=== PATIENT | male | born 1950 | race Caucasian/White ===

== ENCOUNTER 2021-11-29 09:49 | Outpatient (CLI) | payer MEDICARE, SELFPAY ==
[2021-11-29 11:20] LABS: Basophils Absolute Auto 0.1 K/mm3 (0.0-0.1); Basophils Percent Auto 0.8 % (0.2-1.2); Eosinophils Absolute Auto 0.4 K/mm3 (0-0.3); Eosinophils Percent Auto 5.7 % (0-4.4); Hematocrit 51.4 % (42.0-52.0); Hemoglobin 17.3 g/dL (14.0-18.0); Immature Granulocyte Absolute 0.04 K/mm3 (0.00-0.031); Immature Granulocyte Percent A 0.5 % (0-0.5); Lymphocytes Absolute Auto 2.88 K/mm3 (0.9-3.2); Lymphocytes Percent Auto 39.2 % (18.3-44.2); Mean Corpuscular HGB Conc 33.7 g/dl (32-36); Mean Corpuscular Hemoglobin 31.3 pg (26-34); Mean Corpuscular Volume 93.1 fl (80-100); Mean Platelet Volume 9.6 fl (7.4-10.4); Monocytes Absolute Auto 0.7 K/mm3 (0.1-0.6); Neutrophils Absolute Auto 3.3 K/mm3 (1.3-6.7); Neutrophils Percent Auto 44.8 % (45.5-73.1); Platelet Count Result 199 k/mm3 (150-375); Red Blood Count 5.52 M/mm3 (4.6-6.20); Red Cell Distribution Width 12.7 % (11.5-14.5); White Blood Count 7.3 K/mm3 (4.5-10.0)
[2021-11-29 11:31] LABS: Urine Cotinine NEGATIVE
[2021-11-29 11:32] LABS: Hemoglobin A1C 6.3 % (<5.7)
[2021-11-29 11:32] LABS: Prothrombin Time 12.7 Seconds (11.1-14.7)
[2021-11-29 11:33] LABS: Partial Thromboplastin Time 26.6 SECONDS (22.3-36.8)
[2021-11-29 11:34] LABS: Albumin Level 4.5 g/dL (3.5-5.1); Anion Gap 6 mmol/L (8-16); Blood Urea Nitrogen 16 mg/dL (9-20); Calcium 9.5 mg/dL (8.4-10.2); Carbon Dioxide 27 mmol/L (22-30); Chloride 104 mmol/L (98-107); Estimated Glomerular Filt Rate > 60; Glucose 107 mg/dL (65-110); Potassium 4.2 mmol/L (3.4-5.0); Sodium 137 mmol/L (137-145)
[2021-11-29 12:07] LABS: Appearance Urine Clear (Clear); Bilirubin Urine Negative (Negative); Blood Urine Negative (Negative); Color Urine Yellow (Yellow); Glucose Urine UA 1+ mg/dL (Negative); Ketones Urine Trace mg/dL (Negative); Leukocyte Esterase Ur Negative LEU/UL (Negative); Nitrate Urine Negative (Negative); Protein Urine 1+ mg/dL (Negative); Specific Grav Ur 1.025 (1.001-1.035); Urobilinogen Urine 0.2 mg/dL (<2.0); pH Urine 5.5 (5.0-9.0)
[2021-11-29 12:50] LABS: Add Urine Microscopic? YES
[2021-11-29 12:51] LABS: Mucus Urine Few /lpf; Squamous Epithelial Cell Urine Few /hpf (Few)
[2021-11-29 12:52] LABS: RBC Urine 0-2 /hpf (0-2)
[2021-11-29 12:53] LABS: Bacteria Urine Trace /hpf; WBC Urine 0-3 /hpf (0-3)
== END 2021-11-29 09:50 | disposition home or self-care (01) ==
LOC: ANHSURGERY 09:54
PROVIDERS: PCP Internal Medicine; Visit Provider Orthopaedic Surgery
DX: M17.11 Unilateral primary osteoarthritis, right knee (principal); Z01.818 Encounter for other preprocedural examination
CPT/HCPCS: 80048; 80307; 81001; 82040; 83036; 85025; 85610; 85730; 87081

== ENCOUNTER 2021-12-15 00:20 | Day surgery (SDC) | payer MEDICARE, SELFPAY ==
--- NOTE | 2021-11-29 09:42 | PC.NURSE ---
Report to the Outpatient Waiting Room, entrance under the green pavilion located off [facility], at time _0830_ on date _12/15/21_. OR Time: _1000_. - You and your visitor will be asked a series of questions to screen for COVID 19 for your protection. - A mask is required within the hospital. One visitor will be allowed to accompany the patient into the hospital. Patients visitor will be instructed to remain with patient at all times or leave the building. VISITING HOURS 10AM-7PM, USE MAIN ENTRANCE Preoperative COVID Testing Requirements: NONE Patients may have clear liquids (water, carbonated beverages, clear teas, apple juice) until 3 hours prior to surgery (0730 AM) with a maximum of 20 ounces. - No food from midnight until time of surgery Take the following medications with a SIP of water the morning of surgery: _NONE_ Medications to discontinue per KYLEIGH - _ASPIRIN, VOLTAREN OINTMENT - ASK REGARDING AT 12/03/21 APPT___ Medications to discontinue per ANESTHESIA - _MULTIVITAMINS/SUPPLEMENTS, 3 DAYS PRIOR TO SURGERY, Date to take last dose_12/11/21_ Please no deodorant, or body powder the day of surgery. No jewelry (including any body piercings) or valuables the day of surgery, leave them at home. Please take a shower or bath the night before, or the morning of, surgery with an antibacterial soap. Wear comfortable, loose fitting clothing. - Jewelry must be removed prior to entering the operating room. Rings and piercings that are not removed may be cut off. - The hospital will not accept responsibility for valuables. - Please leave all valuables, including medications, at home the day of surgery. If you are going home after surgery, a licensed route relief driver must drive you home. - NO public transportation without another adult. - We recommend that an adult stay with you for 24 hours following discharge. - We also recommend that you do not drive, make important decision, drink alcoholic beverages, or take any drugs that were not prescribed by your health care provider for at least 24 hours after your discharge time. Follow any additional instructions given to you from DR. ARIZMENDI Instructions given to ____PT and asked if any additional questions and then verbalized understanding. Patient advised to call surgeon office or pre surgery nurse liaisonMARTA [phone] if any additional questions.
[2021-11-29 10:22] VITALS: BP 150/70; PULSE 60; RESP 20; TEMP 36.4; O2SAT 94; BMI 29.1
[2021-12-15] VITALS (13 sets, daily range): BP systolic 115–167; BP diastolic 64–94; PULSE 59–97; RESP 12–20; TEMP 36.1–36.7; O2SAT 93–100
--- NOTE | ~2021-12-15 | XR_ITS ---
EXAMINATION: XR knee RT 2V DATE: 12/15/2021 14:06 INDICATION: Postoperative evaluation following right total knee arthroplasty. TECHNIQUE: Anteroposterior and lateral views of the right knee were obtained. COMPARISON: 08/30/2021 FINDINGS: Right total knee arthroplasty without patellar resurfacing appears well seated and in near anatomic a lignment. No fractures identified. Skin gerard and expected postoperative subcutaneous and intra-a rticular gas. Again seen is a large collection of corticated heterotopic ossification in the poplitea l fossa likely representing osteochondral bodies filling a ganglion cyst. Additional heterotopic ossi cyrus in the region of the popliteal recess potentially an additional osteochondral body. IMPRESSION: 1. Right total knee arthroplasty, negative for postoperative purposes. 2. 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 Reviewed, dictated and finalized at location A. IMPRESSION: 1. Right total knee arthroplasty, negative for postoperative purposes. 2. Chronic large collection of heterotopic ossification versus osteochondral luc dies at the popliteal fossa.
--- NOTE | 2021-12-15 07:22 | WPDHPUPDATE1 ---
History and Physical Update Update Date/Time: 12/15/21 07:22 History and Physical has been reviewed, including an updated exam of the patient. There are NO changes in the patient's condition. Risks, benefits, and alternatives have been discussed and questions answered. Patient agrees to proceed with procedure.
[2021-12-15] MEDS: LACTATED RINGERS 1,000 ML 30 ML IV CONT ×2 (09:10→13:50)
[2021-12-15] MEDS: ACETAMINOPHEN 500 MG TABLET 1000 MG PO (09:11)
--- NOTE | 2021-12-15 10:14 | P.PNAN_ITS ---
Anes - Initial Pre Proc Eval Procedure: Operation Date: 12/15/21 10:30 Proposed Procedures p Right Total Knee Arthroplasty - Sridhar Johnson MD Date/Time: 12/15/21 10:14 Surgeon: Sridhar Johnson MD Pre Op Diagnosis: right knee DJD Patient Data Age: 71 Gender: M Height: 1.91 m Weight: 104.1 kg Last Vital Signs Temp 36.2 C L 12/15/21 09:17 Pulse 59 L 12/15/21 09:17 Resp 16 12/15/21 09:17 BP 134/67 12/15/21 09:17 Pulse Ox 97 12/15/21 09:17 Allergies Allergy/AdvReac Type Severity Reaction Status Date / Time No Known Allergies Allergy Verified 12/15/21 08:36 Home Medications Medication Instructions Recorded Confirmed Type finasteride 5 mg tablet 5 mg PO 3XW 09/09/19 12/15/21 History fish, borage, flaxseed oils-omega 1 cap PO QAM 09/09/19 12/15/21 History 3,6,9 comb no.1 1,200 mg capsule psyllium husk 0.52 gram capsule 0.52 gm PO QAM 09/09/19 12/15/21 History rosuvastatin 10 mg tablet 10 mg PO HS 09/09/19 12/15/21 History aspirin 81 mg PO HS 11/29/21 12/15/21 History cholecalciferol (vitamin D3) 125 mcg PO QAM 11/29/21 12/15/21 History diclofenac sodium [Voltaren] 4 g TOPICAL QID 11/29/21 12/15/21 History hydrochlorothiazide 25 mg QAM 11/29/21 12/15/21 History melatonin 20 mg PO HS 11/29/21 12/15/21 History nbslbrfb-nuo-WI-lycopen-lutein 1 tablet PO QAM 11/29/21 12/15/21 History [[facility]] nitroglycerin 0.4 mg SUBLINGUAL Q1-3M 11/29/21 12/03/21 History tadalafil 20 mg PO DAILY PRN 11/29/21 12/03/21 History Patient hx anesthesia problems: none Family hx anesthesia problems: none Results Review: All pre-operative results and documents have been reviewed as part of the pre-operative evaluation. FORMERLY [facility], [facility] Past Medical History Medical History Anxiety CAD (coronary artery disease) Depressed High cholesterol Hypertension Vision loss Surgical History Surgical History H/O heart artery stent Social History Social History Second hand tobacco smoke exposure: No Additional smoking assessment comments: PT DENIES ALL FORMS OF TOBACCO USE Alcohol intake: current Drinks per week: 2 Substance use: never Substance use type: does not use Living arrangements: with family Spiritual care concerns: No Anes - Eval Final PreProcedure Day of Procedure 12/15/21 10:14 Patient weight: overweight Heart: regular rate and rhythm Lungs: clear to auscultation Airway: Mallampati scale class II Neurological: alert and oriented Last oral intake: >/= 8 hours ASA classification: III Emergent: no Anesthetic plan: proceed Anesthesia type and monitoring: general LMA and standard monitoring Results Review: All pre-operative results and documents have been reviewed as part of the pre-operative evaluation. Informed Consent: The patient's anesthetic plan and its attendant risks and benefits were discussed with the patient/family/POA. Questions were solicited and answers provided to the satisfaction of the patient/family/POA.
[2021-12-15] MEDS: TRANEXAMIC ACID 1,000MG/ISO100 1,000 MG/100 ML BAG 200 MG IVPB (10:20)
[2021-12-15] MEDS: ceFAZolin 2 GM/D5W 50 ML 2 GM/50 ML BAG IVPB ×2 (11:26→18:45)
[2021-12-15] MEDS: GENTAMICIN BONE CEMENT REFOBACIN 1 EACH TOPICAL (12:00)
[2021-12-15] MEDS: TRANEXAMIC ACID 1,000 MG/10 ML AMPUL 1000 MG IV PUSH (13:21)
[2021-12-15] MEDS: fentaNYL CITRATE INJ (*CRX) 100 MCG/2 ML VIAL 25 MCG IV PUSH ×6 (14:05→14:33)
--- NOTE | 2021-12-15 14:25 | SUR.PHASEI ---
Simple mask removed at 1422.
--- NOTE | 2021-12-15 14:32 | W.PM.PROC2 ---
Procedure Note - Detailed Date of Procedure 12/15/21 Pre-op Diagnosis right knee DJD Post-op Diagnosis Same Procedure Performed R TKA Surgeon Sridhar Johnson MD Anesthesia General Description of Procedure THE RIGHT KNEE WAS PREPPED AND DRAPED IN THE STERILE FASHION. THERE WAS A 10 DEGREE FLEXION CONTRACTURE. A MIDLINE SKIN INCISION WAS MADE. A MEDIAL PARAPATELLAR ARTHROTOMY WAS MADE. THE PATELLA WAS EVERTED. THERE WAS TRICOMPARTMENT DJD. THERE WAS MINIMAL PATELLA DJD. AN INTRAMEDULLARY SARITA WAS PLACED IN THE FEMUR. A DISTAL FEMORAL CUT WAS MADE IN 5 DEGREES OF VALGUS REMOVING APPROXIMATELY 9 MM OF BONE FROM THE DISTAL FEMUR. THE FEMUR WAS SIZED TO 70. A 70 FEMORAL CUTTING BLOCK WAS PLACED IN 3 DEGREES OF EXTERNAL ROTATION AND IN ALIGNMENT WITH GINA'S LINE AND THE TRANSEPICONDYLAR AXIS. ANTERIOR POSTERIOR AND CHAMFER CUTS WERE MADE. THE CUTS WERE EXCELLENT. NEXT AN INTRAMEDULLARY CUTTING GUIDE WAS PLACED IN THE TIBIA. A TRANS TIBIAL CUT WAS MADE ALONG THE LONG AXIS OF THE TIBIA. APPROXIMATELY 10 MM OF BONE WAS REMOVED FROM THE HIGH SIDE OF THE TIBIA. THE TIBIA WAS THEN PLANED TO A SMOOTH SURFACE. POSTERIOR FEMORAL OSTEOPHYTES WERE REMOVED FROM THE FEMORAL CONDYLES. A 83 TIBIAL TRIAL WAS PLACED IN ALIGNMENT WITH THE 1/3 MEDIAL ASPECT OF THE TIBIAL TUBERCLE. THEN A 70 FEMORAL TRIAL COMPONENT WAS PLACED. BOTH HAD EXCELLENT FITS. EVENTUALLY A 10 MM CR POLYETHYLENE TRIAL COMPONENT WAS PLACED. THE KNEE WAS TAKEN THROUGH A RANGE OF MOTION. THE KNEE CAME OUT TO FULL EXTENSION. THERE WAS NO ABNORMAL TILT TO THE PATELLA. THERE WAS GOOD A/P AND VARUS/VALGUS STABILITY. THERE WAS NO EXCESSIVE ROLL BACK WITH FLEXION. THE TRIAL COMPONENTS WERE REMOVED. THEN A 70 FEMORAL COMPONENT AND 83 TIBIAL COMPONENT WITH A 10 CR POLYETHYLENE COMPONENT WERE CEMENTED INTO PLACE. ONCE THE CEMENT WAS HARD THE KNEE WAS TAKEN THROUGH A ROM AGAIN AND FOUND TO BE STABLE WITH NO PATELLA TILT NO EXCESSIVE ROLL BACK WITH FLEXION AND GOOD STABILITY WITH COMPLETE AND FULL EXTENSION. THE KNEE WAS IRRIGATED WITH STERILE BETADINE AND WATER FOR ABOUT 3 MINUTES. THE BLEEDERS WERE CAUTERIZED. THE ARTHROTOMY WAS REPAIRED WITH NUMBER 1 VICRYL. THE SUB CUTANEOUS LAYER WITH 2-0 VICRYL AND THE SKIN WITH CHERRI. THE WOUND WAS WASHED AND A STERILE DRESSING WAS APPLIED. PATIENT WAS EXTUBATED. Estimated Blood Loss 100 Pathology None sent Complications No immediate complications Condition Stable Disposition PACU
[2021-12-15] MEDS: SODIUM CHLORIDE 0.9% IV 1,000 ML 125 ML IV CONT (16:32)
[2021-12-15] MEDS: FINASTERIDE 5 MG TABLET PO (16:40)
[2021-12-15] MEDS: SENNA/DOCUSATE SODIUM TABLET 2 TAB PO (16:40)
--- NOTE | 2021-12-15 19:52 | PC.NURSE ---
1900 ANCEF GIVEN PER BETY PEÑA ON DAY SHIFT
[2021-12-15] MEDS: ASPIRIN 325 MG ENTERIC TABLET PO (20:57)
[2021-12-15] MEDS: ROSUVASTATIN 10 MG TABLET PO (20:57)
[2021-12-16 00:59] VITALS: BP 140/71; PULSE 70; RESP 14; TEMP 36.6; O2SAT 95
[2021-12-16] MEDS: ceFAZolin 2 GM/D5W 50 ML 2 GM/50 ML BAG IVPB ×2 (03:12→10:37)
[2021-12-16 06:16] LABS: Basophils Percent Auto 0.2 % (0.2-1.2); Eosinophils Percent Auto 0.1 % (0-4.4); Hematocrit 45.4 % (42.0-52.0); Immature Granulocyte Absolute 0.06 K/mm3 (0.00-0.031); Immature Granulocyte Percent A 0.4 % (0-0.5); Lymphocytes Absolute Auto 2.37 K/mm3 (0.9-3.2); Lymphocytes Percent Auto 17.4 % (18.3-44.2); Mean Corpuscular Hemoglobin 31.7 pg (26-34); Mean Platelet Volume 10.2 fl (7.4-10.4); Monocytes Absolute Auto 1.2 K/mm3 (0.1-0.6); Monocytes Percent Auto 8.4 % (2.6-8.5); Neutrophils Percent Auto 73.5 % (45.5-73.1); Platelet Count Result 185 k/mm3 (150-375); Red Blood Count 4.73 M/mm3 (4.6-6.20); Red Cell Distribution Width 12.5 % (11.5-14.5); White Blood Count 13.6 K/mm3 (4.5-10.0)
[2021-12-16 06:24] LABS: Anion Gap 8 mmol/L (8-16); Blood Urea Nitrogen 15 mg/dL (9-20); Calcium 8.6 mg/dL (8.4-10.2); Carbon Dioxide 25 mmol/L (22-30); Chloride 105 mmol/L (98-107); Estimated CRCL calculation 69 ml/min; Estimated Glomerular Filt Rate > 60; Glucose 107 mg/dL (65-110); Sodium 138 mmol/L (137-145)
[2021-12-16 07:03] VITALS: BP 145/70; PULSE 71; RESP 16; TEMP 36.4; O2SAT 97
[2021-12-16] MEDS: polyethylene glycoL 3350 17 GM POWD.PACK PO (08:16)
[2021-12-16] MEDS: CHOLECALCIFEROL 1,000 UNITS TABLET 5000 UNITS PO (08:16)
[2021-12-16] MEDS: hydroCHLOROthiazide 25 MG TABLET BY MOUTH (08:16)
[2021-12-16] MEDS: ASPIRIN 325 MG ENTERIC TABLET PO (08:16)
[2021-12-16] MEDS: SENNA/DOCUSATE SODIUM TABLET 2 TAB PO ×2 (08:16→17:44)
[2021-12-16 10:00] VITALS: BP 141/69; PULSE 58; RESP 18; TEMP 36.9; O2SAT 99
--- NOTE | 2021-12-16 10:43 | P.PNAN_ITS ---
Anes - Prog Note Post-Op Date/Time: 12/16/21 10:43 Cardiovascular status: normal Respiratory status: normal Airway patency: baseline Mental status: baseline Post-Op hydration status: normal Vital Signs: Last Vital Signs Temp 98.4 F 12/16/21 10:00 Pulse 58 L 12/16/21 10:00 Resp 18 12/16/21 10:00 BP 141/69 H 12/16/21 10:00 Pulse Ox 99 12/16/21 10:00 Pain Score (VAS): 09/27 I/O: Intake & Output 12/15/21 12/16/21 12/16/21 23:59 07:59 15:59 Intake Total 510 1400 480 Output Total 500 Balance 510 900 480 Laboratory Tests 12/16/21 05:33 12/16/21 05:33 12/16/21 12/16/21 05:33 05:33 WBC 13.6 H RBC 4.73 Hgb 15.0 Hct 45.4 MCV 96.0 MCH 31.7 MCHC 33.0 RDW 12.5 Plt Count 185 MPV 10.2 Immature Gran % (Auto) 0.4 Neut % (Auto) 73.5 H Lymph % (Auto) 17.4 L [place] % (Auto) 8.4 Eos % (Auto) 0.1 Baso % (Auto) 0.2 Lymph # (Auto) 2.37 [place] # (Auto) 1.2 H Eos # (Auto) 0.0 Baso # (Auto) 0.0 Abs Immat Gran (auto) 0.06 H Absolute Neuts (auto) 10.0 H Absolute Nucleated RBC 0.0 Nucleated RBC % 0.0 Sodium 138 Potassium 4.0 Chloride 105 Carbon Dioxide 25 Anion Gap 8 BUN 15 Creatinine 1.00 Estim Creat Clear Calc 69 Estimated GFR > 60 Glucose 107 Calcium 8.6 Post-procedural complaints: none Patient Feedback: Patient satisfied with anesthetic care.
[2021-12-16 14:00] VITALS: BP 151/63; PULSE 61; RESP 16; TEMP 36.9; O2SAT 98
[2021-12-16] MEDS: oxyCODONE/ACETAMINOPHEN (*CRX) 5-325 MG TABLET 1 TABLET PO (17:44)
--- NOTE | 2021-12-16 18:09 | PM.PNORT ---
Progress Note: A&P Additional Plan POD 1 DOING WELL. OK TO DC HOME F/U IN 3 WEEKS Time Spent With Patient Time with patient: less than 15 minutes Subjective Subjective Date/Time Seen: OD 1 DOING WELL. GOOD PROGRESS WITH PT. NO CALF PAIN/ 18:09 Exam Extrem: Other: VSS AFEBRILE DRESSING DRY NV INTACT NEG HOMANS SIGN Objective Data Vital Signs Vital Signs: Vital Signs - 24 hr 12/15/21 18:51 12/15/21 19:56 12/15/21 20:07 Temperature 36.3 C L 36.7 C Pulse Rate 96 97 Respiratory Rate 18 16 Blood Pressure 138/64 144/83 H Pulse Oximetry 95 95 96 12/16/21 00:59 12/16/21 07:03 12/16/21 10:00 Temperature 36.6 C 36.4 C 36.9 C Pulse Rate 70 71 58 L Respiratory Rate 14 16 18 Blood Pressure 140/71 145/70 H 141/69 H Pulse Oximetry 95 97 99 12/16/21 14:00 Temperature 36.9 C Pulse Rate 61 Respiratory Rate 16 Blood Pressure 151/63 H Pulse Oximetry 98 Intake/Output Intake/Output: Intake & Output 12/13/21 12/14/21 12/15/21 12/16/21 23:59 23:59 23:59 23:59 Intake Total 1160 3350 Output Total 500 Balance 1160 2850 Meds/Results Medications: Active Medications Generic Name Dose Route Start Last Admin Trade Name Freq PRN Reason Stop Dose Admin Acetaminophen 1,000 mg 12/15/21 15:14 Acetaminophen 500 Mg Tablet PO Q6H PRN Pain Rated 1-3 Aspirin 325 mg 12/15/21 21:00 12/16/21 08:16 Aspirin 325 Mg Enteric Tablet PO 325 mg Q12HR MIMA Administration Diazepam 5 mg 12/15/21 15:14 Diazepam (*Crx) 5 Mg Tablet PO Q8H PRN Spasms Diphenhydramine HCl 25 mg 12/15/21 15:14 Diphenhydramine Hcl Inj 50 Mg/Ml Vial IV PUSH Q6H PRN Itching Finasteride 5 mg 12/15/21 15:14 12/15/21 16:40 Finasteride 5 Mg Tablet PO 5 mg [id number] MIMA Administration Hydrochlorothiazide 25 mg 12/16/21 09:00 12/16/21 08:16 Hydrochlorothiazide 25 Mg Tablet BY MOUTH 25 mg QAM MIMA Administration Naloxone HCl 0.1 mg 12/15/21 15:14 Naloxone Hcl 0.4 Mg/Ml Vial IV PUSH Q2M PRN Opiate Reversal Nitroglycerin 0.4 mg 12/15/21 16:40 Nitroglycerin Sl 0.4 Mg Tablet SUBLINGUAL Q5M PRN Chest Pain Ondansetron HCl 4 mg 12/15/21 15:14 Ondansetron Inj 4 Mg/2 Ml Vial IV PUSH Q4H PRN Nausea And Vomiting Oxycodone/Acetaminophen 1 tablet 12/15/21 15:14 12/16/21 17:44 Oxycodone/Acetaminophen (*Crx) 5-325 Mg Tablet PO 1 tablet Q4H PRN Administration Pain Rated 4-6 Oxycodone/Acetaminophen 2 tablet 12/15/21 15:14 Oxycodone/Acetaminophen (*Crx) 5-325 Mg Tablet PO Q6H PRN Pain Rated 7-10 Polyethylene Glycol 17 gm 12/16/21 09:00 12/16/21 08:16 Polyethylene Glycol 3350 17 Gm Powd.Pack PO 17 gm QAM MIMA Administration Rosuvastatin Calcium 10 mg 12/15/21 21:00 12/15/21 20:57 Rosuvastatin 10 Mg Tablet PO 10 mg HS MIMA Administration Senna/Docusate Sodium 2 tab 12/15/21 17:00 12/16/21 17:44 Senna/Docusate Sodium Tablet PO 2 tab BID MIMA Administration Vitamin D 5,000 units 12/16/21 09:00 12/16/21 08:16 Cholecalciferol 1,000 Units Tablet PO 5,000 units QAM IMMA Administration Radiology Results: ITS Impressions Knee X-Ray 12/15/21 14:10 IMPRESSION: 1. Right total knee arthroplasty, negative for postoperative purposes. 2. 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 Labs Labs: Laboratory Results - last 24 hr 12/16/21 12/16/21 05:33 05:33 WBC 13.6 H RBC 4.73 Hgb 15.0 Hct 45.4 MCV 96.0 MCH 31.7 MCHC 33.0 RDW 12.5 Plt Count 185 MPV 10.2 Immature Gran % (Auto) 0.4 Neut % (Auto) 73.5 H Lymph % (Auto) 17.4 L [place] % (Auto) 8.4 Eos % (Auto) 0.1 Baso % (Auto) 0.2 Lymph # (Auto) 2.37 [place] # (Auto) 1.2 H Eos # (Auto) 0.0 Baso # (Auto) 0.0 Abs Immat Gran (auto) 0.06 H Absolute Neuts (auto) 10.0 H Absolute Nucleated RBC 0.0
--- NOTE | 2021-12-16 18:10 | PM.DS ---
DS: Admitting Diagnosis Discharge Date 12/16/21 Admitting Diagnosis R KNEE DJD DS: Discharge Diagnosis Discharge Diagnosis (1) Left knee DJD: Qualifiers: Osteoarthritis type: primary Qualified Code(s): M17.12 - Unilateral primary osteoarthritis, left knee Code(s): M17.12 - Unilateral primary osteoarthritis, left knee Status: Acute DS: Summary Hospital Course Reason for hospitalization: R TKA Hospital Course: PATIENT WAS ADMITTED S/P R TOTAL KNEE ARTHROPLASTY FOR POSTOPERATIVE MEDICAL MANAGEMENT, PAIN CONTROL AND MOBILIZATION WITH PHYSICAL AND OCCUPATIONAL THERAPY. THE PATIENT PROGRESSED WELL WITH PT/OT. LABS AND VITALS REMAINED STABLE AND PAIN WELL CONTROLLED. THE PATIENT HAS BEEN CLEARED TO BE DISCHARGED HOME. FOLLOW UP APPOINTMENT SCHEDULED. DISCHARGE INSTRUCTIONS DISCUSSED AT LENGTH WITH THE PATIENT. MEDICATIONS REVIEWED. Time spent discussing smoking cessation with patient: 3 to 10 minutes Status at Discharge Functional status at discharge: uses cane/walker Overall status at discharge: patient is not back to baseline Time Spent with Patient Time attestation: Total time spent providing and/or coordinating discharge services: Time spent: Less than 30 minutes DS: Data Data Completed and Pending Labs on day of discharge: Labs from last 24 hours 12/16/21 12/16/21 05:33 05:33 WBC 13.6 H RBC 4.73 Hgb 15.0 Hct 45.4 MCV 96.0 MCH 31.7 MCHC 33.0 RDW 12.5 Plt Count 185 MPV 10.2 Immature Gran % (Auto) 0.4 Neut % (Auto) 73.5 H Lymph % (Auto) 17.4 L [place] % (Auto) 8.4 Eos % (Auto) 0.1 Baso % (Auto) 0.2 Lymph # (Auto) 2.37 [place] # (Auto) 1.2 H Eos # (Auto) 0.0 Baso # (Auto) 0.0 Abs Immat Gran (auto) 0.06 H Absolute Neuts (auto) 10.0 H Absolute Nucleated RBC 0.0 Nucleated RBC % 0.0 Sodium 138 Potassium 4.0 Chloride 105 Carbon Dioxide 25 Anion Gap 8 BUN 15 Creatinine 1.00 Estim Creat Clear Calc 69 Estimated GFR > 60 Glucose 107 Calcium 8.6 Discharge Plan Discharge Patient Disposition: Home, Self-Care Discharge Instructions: SUSI JOHNSON M.D. [facility] [address] [place] [address] POST OPERATIVE DISCHARGE INSTRUCTIONS FOLLOWING TOTAL KNEE REPLACEMENT SURGERY ? Your dressing will be changed prior to your discharge. You will be sent home with one additional dressing to be changed on post op day 7 by the home health RN. Your gerard will be removed on the 14th day after surgery and steri-strips will be placed. Please practice good hand hygiene and do not touch your incision in order to prevent infection. ? You may shower with your dressing but do not submerge in a bath tub. ? Do not drive or operate machinery until you are released by Dr. Johnson. ? Do not walk without a walker for any reason until you are released by Dr. Johnson. ? Continue to use your ice machine. Please use a towel or pillow case to protect your skin before applying your ice machine. ? Do NOT place a pillow under your knee. You may use a pillow from the calf down if needed. This will prevent a flexion contracture postoperatively. ? You may begin use of your CPM machine at home if you have been given one pre-operatively. DO NOT USE WHILE YOU ARE SLEEPING. ? Your first post op appointment was sent to you via mail preoperatively. If you have any questions or are unable to make your appointment, please contact our office for scheduling questions. ? Your medications have been sent to your pharmacy. You have been sent home with pain medication. We have also sent you with a stool softener as narcotics can cause constipation. Please keep this in mind during your postoperative recovery. If you are not experiencing regular bowel movements, please contact our office for further instruction. ? Please contact our office with any questions/concerns regarding your knee at
== END 2021-12-16 18:40 | disposition home or self-care (01) ==
LOC: ANHSURGERY 08:30 → ANH2MED 15:22
PROVIDERS: PCP Internal Medicine; Visit Provider Orthopaedic Surgery
PROC: (CPT 27447; principal; 2021-12-15 10:30)
DX: M17.11 Unilateral primary osteoarthritis, right knee (principal); I10 Essential (primary) hypertension; I25.10 Atherosclerotic heart disease of native coronary artery without angina pectoris; E78.00 Pure hypercholesterolemia, unspecified; F41.8 Other specified anxiety disorders; Z95.5 Presence of coronary angioplasty implant and graft; Z79.82 Long term (current) use of aspirin
CPT/HCPCS: 27447; 36415; 73560; 80048; 80307; 81001; 82040; 83036; 85025; 85610; 85730; 86850; 86900; 86901; 87081; 97110; 97116; 97161; 97165; A9270; C1713; C1776; J0171; J0690; J1100; J1170; J1885; J2250; J2270; J2405; J2704; J2795; J3010; J7030; J7120

== ENCOUNTER 2022-07-01 09:58 | Outpatient (CLI) | payer MEDICARE, SELFPAY ==
--- NOTE | 2022-07-01 10:45 | ECG_ITS ---
Measurements Intervals [place] Rate: 54 P: 50 DE: 187 QRS: 40 QRSD: 153 T: 10 QT: 445 QTc: 422 Interpretive Statements SINUS BRADYCARDIA RIGHT BUNDLE BRANCH BLOCK [120+ ms QRS DURATION, UPRIGHT V1, 40+ ms S IN I/aVL/V4/V5/V6] ABNORMAL ECG NO PREVIOUS ECG AVAILABLE FOR COMPARISON Electronically Signed On 07-01-2022 15:40:43 CDT by Richard Azar M.D.
[2022-07-01 11:09] LABS: Basophils Absolute Auto 0.1 K/mm3 (0.0-0.1); Basophils Percent Auto 0.9 % (0.2-1.2); Eosinophils Absolute Auto 0.4 K/mm3 (0-0.3); Eosinophils Percent Auto 6.2 % (0-4.4); Hematocrit 48.4 % (42.0-52.0); Hemoglobin 16.4 g/dL (14.0-18.0); Immature Granulocyte Absolute 0.03 K/mm3 (0.00-0.031); Immature Granulocyte Percent A 0.4 % (0-0.5); Lymphocytes Absolute Auto 2.68 K/mm3 (0.9-3.2); Lymphocytes Percent Auto 39.7 % (18.3-44.2); Mean Corpuscular HGB Conc 33.9 g/dl (32-36); Mean Corpuscular Hemoglobin 30.9 pg (26-34); Mean Corpuscular Volume 91.3 fl (80-100); Mean Platelet Volume 9.2 fl (7.4-10.4); Monocytes Absolute Auto 0.6 K/mm3 (0.1-0.6); Monocytes Percent Auto 9.5 % (2.6-8.5); Neutrophils Absolute Auto 2.9 K/mm3 (1.3-6.7); Neutrophils Percent Auto 43.3 % (45.5-73.1); Platelet Count Result 216 k/mm3 (150-375); Red Cell Distribution Width 12.8 % (11.5-14.5); White Blood Count 6.8 K/mm3 (4.5-10.0)
[2022-07-01 11:18] LABS: Urine Cotinine NEGATIVE
[2022-07-01 11:20] LABS: Add Urine Microscopic? YES; Appearance Urine Clear (Clear); Bilirubin Urine Negative (Negative); Blood Urine Negative (Negative); Color Urine Yellow (Yellow); Glucose Urine UA Negative (Negative); Ketones Urine Negative (Negative); Leukocyte Esterase Ur Negative LEU/UL (Negative); Mucus Urine Rare /lpf; Nitrate Urine Negative (Negative); Protein Urine 1+ mg/dL (Negative); RBC Urine 0-2 /hpf (0-2); Specific Grav Ur 1.023 (1.001-1.035); Squamous Epithelial Cell Urine Rare /hpf (Few); Urobilinogen Urine Negative mg/dL (<2.0); WBC Urine 0-3 /hpf
[2022-07-01 11:22] LABS: Prothrombin Time 12.7 Seconds (11.1-14.7)
[2022-07-01 11:23] LABS: Albumin Level 4.4 g/dL (3.5-5.1); Anion Gap 11 mmol/L (8-16); Blood Urea Nitrogen 15 mg/dL (9-20); Calcium 9.5 mg/dL (8.4-10.2); Carbon Dioxide 29 mmol/L (22-30); Chloride 100 mmol/L (98-107); Estimated Glomerular Filt Rate > 60; Glucose 104 mg/dL (65-110); Partial Thromboplastin Time 27.1 SECONDS (22.3-36.8); Potassium 4.4 mmol/L (3.4-5.0); Sodium 140 mmol/L (137-145)
[2022-07-01 11:38] LABS: Hemoglobin A1C 6.6 % (<5.7)
== END 2022-07-01 09:59 | disposition home or self-care (01) ==
LOC: ANHSURGERY 10:03
PROVIDERS: PCP Family Medicine; Visit Provider Orthopaedic Surgery
DX: M17.12 Unilateral primary osteoarthritis, left knee (principal); Z01.818 Encounter for other preprocedural examination; I45.10 Unspecified right bundle-branch block
CPT/HCPCS: 80048; 80307; 81001; 82040; 83036; 85025; 85610; 85730; 87081; 93005

== ENCOUNTER 2022-07-27 01:38 | Day surgery (SDC) | payer MEDICARE, SELFPAY ==
[2022-07-01 10:17] VITALS: BP 151/73; PULSE 62; RESP 16; TEMP 36.1; O2SAT 97; BMI 27.9
--- NOTE | 2022-07-01 10:29 | PC.NURSE ---
Report to the Outpatient Waiting Room, entrance under the green pavilion located off [facility], at time __9:00AM on date ___07/27/22____. OR Time: __11:00AM . Time changes happen often and if your time is changed the preop area will call you the afternoon before. - You and your visitor will be asked to self-screen and do not enter if you have any COVID symptoms. - We encourage only one visitor and NO visitors under age 16 are allowed at this time. Your visitor will receive communication by the phone number that is given day of service. - The patient visitor is requested to social distance or may leave the building when not with patient due to restrictions. - A mask is required within the hospital. Patients may have clear liquids (water, carbonated beverages, clear teas, apple juice) until 3 hours prior to surgery with a maximum of 20 ounces. - No food from midnight until time of surgery Take the following medications with a SIP of water the morning of surgery: NONE Medications to discontinue per physician __HOLD ASPIRIN 7 DAYS PRE-OP PER DR ARIZMENDI- LAST DOSE 07/20/22. HOLD ALL VITAMINS/SUPPLEMENTS 3 DAYS PRE-OP, LAST DOSE 07/23/22 Please no make-up, nail south korean, hairspray, perfume, deodorant, or body powder the day of surgery. No jewelry (including any body piercings) or valuables the day of surgery, leave them at home. Please take a shower or bath the night before, or the morning of, surgery with an antibacterial soap. Wear comfortable, loose fitting clothing. Children are encouraged to wear pajamas. - Jewelry must be removed prior to entering the operating room. Rings and piercings that are not removed may be cut off. - The hospital will not accept responsibility for valuables. - Please leave all valuables, including medications, at home the day of surgery. If you are going home after surgery, a licensed tanker driver must drive you home. - NO public transportation without another adult. - We recommend that an adult stay with you for 24 hours following discharge. - We also recommend that you do not drive, make important decision, drink alcoholic beverages, or take any drugs that were not prescribed by your health care provider for at least 24 hours after your discharge time. Follow any additional instructions given to you from your surgeon. If you or anyone in your household have experienced Covid symptoms in the past week, please notify your surgeon or the nurse liaison at the phone number below for possible testing. Telephone instructions given to ____PATIENT and asked if any additional questions and then verbalized understanding. Patient advised to call surgeon office or pre surgery nurse liaison [phone] if any additional questions.
[2022-07-27] VITALS (15 sets, daily range): BP systolic 91–155; BP diastolic 58–103; PULSE 65–110; RESP 12–16; TEMP 36–36.9; O2SAT 93–99
--- NOTE | ~2022-07-27 | XR_ITS ---
EXAM: XR knee LT 2V DATE: 07/27/2022 15:11 HISTORY: LT TOTAL KNEE . COMPARISON: 06/27/2022. FINDINGS: Interval right knee total arthroplasty, in good position. Midline skin gerard. Expected s oft tissue and joint space gas/fluid. No unexpected radiopaque foreign body. IMPRESSION: Expected postsurgical changes, with no radiographic evidence of procedure or hardware rel ated complication. Reviewed, dictated and finalized at location [facility] [employer] IMPRESSION: Expected postsurgical changes, with no radiographic evidence of pro cedure or hardware related complication.
--- NOTE | 2022-07-27 07:14 | WPDHPUPDATE1 ---
History and Physical Update Update Date/Time: 07/27/22 07:14 History and Physical has been reviewed, including an updated exam of the patient. There are NO changes in the patient's condition. Risks, benefits, and alternatives have been discussed and questions answered. Patient agrees to proceed with procedure.
[2022-07-27] MEDS: ACETAMINOPHEN 500 MG TABLET 1000 MG PO (09:18)
[2022-07-27] MEDS: LACTATED RINGERS 1,000 ML 30 ML IV CONT ×2 (09:35→14:35)
--- NOTE | 2022-07-27 10:50 | WPDANESEPPF ---
Anes - Initial Pre Proc Eval Procedure: Operation Date: 07/27/22 11:00 Proposed Procedures p Left Total Knee Arthroplasty - Sridhar Johnson MD Date/Time: 07/27/22 10:50 Surgeon: Sridhar Johnson MD Pre Op Diagnosis: left knee DJD Patient Data Age: 72 Gender: M Height: 1.91 m Weight: 101.8 kg Last Vital Signs Temp 36.0 C L 07/27/22 09:38 Pulse 65 07/27/22 09:38 Resp 16 07/27/22 09:38 BP 154/67 H 07/27/22 09:38 Pulse Ox 99 07/27/22 09:38 O2 Del Method Room Air 07/27/22 09:38 Allergies Allergy/AdvReac Type Severity Reaction Status Date / Time No Known Allergies Allergy Verified 07/27/22 09:16 Home Medications Medication Instructions Recorded Confirmed Type finasteride 5 mg tablet 5 mg PO 3XW 09/09/19 07/27/22 History fish, borage, flaxseed oils-omega 1 cap PO QAM 09/09/19 07/27/22 History 3,6,9 comb no.1 1,200 mg capsule ([place] 3-6-9) psyllium husk 0.52 gram capsule 0.52 gm PO QAM 09/09/19 07/27/22 History (Fiber (psyllium husk)) aspirin 81 mg capsule 81 mg PO HS 11/29/21 07/27/22 History cholecalciferol (vitamin D3) 125 125 mcg PO QAM 11/29/21 07/27/22 History mcg (5,000 unit) capsule hydrochlorothiazide 25 mg tablet 25 mg PO DAILY 11/29/21 07/27/22 History melatonin 10 mg tablet 20 mg PO HS 11/29/21 07/27/22 History nitroglycerin 0.4 mg sublingual 0.4 mg sublingual Q1-3M CHEST PAIN 11/29/21 07/01/22 History tablet tadalafil 20 mg tablet 20 mg PO DAILY PRN Erectile 11/29/21 07/01/22 History Dysfunction cyanocobalamin (vitamin B-12) 5,000 mcg PO DAILY 07/01/22 07/27/22 History 5,000 mcg capsule rosuvastatin 40 mg tablet 40 mg PO HS 07/01/22 07/27/22 History Patient hx anesthesia problems: none Family hx anesthesia problems: none Results Review: All pre-operative results and documents have been reviewed as part of the pre-operative evaluation. [facility] Past Medical History Medical History Anxiety CAD (coronary artery disease) Depressed High cholesterol Hypertension Preoperative clearance Vision loss Surgical History Surgical History H/O heart artery stent Social History Social History Smoking status: Never smoker Second hand tobacco smoke exposure: No Additional smoking assessment comments: PT DENIES ALL FORMS OF TOBACCO USE Alcohol intake: current Drinks per week: 1 Substance use: never Substance use type: does not use Living arrangements: with family Additional living arrangements comments: Gender identity (if verbalized by the patient): Male Spiritual care concerns: No Agree to blood products: Yes Anes - Eval Final PreProcedure Day of Procedure 07/27/22 10:50 Patient weight: overweight Heart: regular rate and rhythm Lungs: clear to auscultation Airway: Mallampati scale class II Neurological: alert and oriented Last oral intake: >/= 8 hours ASA classification: III Emergent: no Anesthetic plan: proceed Anesthesia type and monitoring: general LMA and standard monitoring Results Review: All pre-operative results and documents have been reviewed as part of the pre-operative evaluation. Informed Consent: The patient's anesthetic plan and its attendant risks and benefits were discussed with the patient/family/POA. Questions were solicited and answers provided to the satisfaction of the patient/family/POA.
[2022-07-27] MEDS: TRANEXAMIC ACID 1,000MG/ISO100 1,000 MG/100 ML BAG 200 MG IVPB (11:00)
--- NOTE | 2022-07-27 11:41 | WPDANESPNB ---
Anes - Peripheral Nerve Block Date/Time: 07/27/22 11:41 I have discussed with the patient/family/POA the placement of a peripheral nerve block for post-operative pain management, including associated risks, benefits, complications, and side effects. Alternative methods of post-operative analgesia were detailed. Questions were solicited and answers provided to the satisfaction of the patient/family/POA. Time-Out: A pre-procedural Time-Out was completed immediately before starting the procedure and confirmed: Patient Identification, Site, Procedure, Patient Position and the Availability of Requisite Equipment. Clinical Indications: Acute post-operative pain management requested by the operative surgeon. Nerve Block Insertion Note Anes-nerve block: adductor canal left Patient position: supine Skin prep: chlorhexidine Needle: 22 gauge, stimulating, insulated echogenic needle. Needle length: 80 mm Technique: ultrasound Technique comment: mid2mg [id number] Injectate: bupivacaine 0.5% with epi 5 mcg/ml (30ml no epi) and dexamethasone (mg) (4) Observations: tolerated well Complications: none Procedure start time:: 1130 Procedure end time:: 1137
[2022-07-27] MEDS: ceFAZolin 2 GM/D5W 50 ML 2 GM/50 ML BAG IVPB ×2 (11:51→18:41)
[2022-07-27] MEDS: GENTAMICIN BONE CEMENT REFOBACIN 1 EACH TOPICAL (13:16)
[2022-07-27] MEDS: TRANEXAMIC ACID 1,000 MG/10 ML AMPUL 1000 MG IV PUSH (13:49)
[2022-07-27] MEDS: fentaNYL CITRATE INJ (*CRX) 100 MCG/2 ML VIAL 25 MCG IV PUSH ×5 (14:50→15:33)
--- NOTE | 2022-07-27 14:56 | W.PM.PROC2 ---
Procedure Note - Detailed Date of Procedure 07/27/22 Pre-op Diagnosis left knee DJD Post-op Diagnosis Same Procedure Performed L TKA Surgeon Sridhar Johnson MD Anesthesia General Description of Procedure THE LEFT KNEE WAS PREPPED AND DRAPED IN THE STERILE FASHION. THERE WAS A 20 DEGREE FLEXION CONTRACTURE. A MIDLINE SKIN INCISION WAS MADE. A MEDIAL PARAPATELLAR ARTHROTOMY WAS MADE. THE PATELLA WAS EVERTED. THERE WAS TRICOMPARTMENT DJD. THERE WAS MINIMAL PATELLA DJD. AN INTRAMEDULLARY SARTIA WAS PLACED IN THE FEMUR. A DISTAL FEMORAL CUT WAS MADE IN 5 DEGREES OF VALGUS REMOVING APPROXIMATELY 9 MM OF BONE FROM THE DISTAL FEMUR. THE FEMUR WAS SIZED TO 70. A 70 FEMORAL CUTTING BLOCK WAS PLACED IN 3 DEGREES OF EXTERNAL ROTATION AND IN ALIGNMENT WITH GINA'S LINE AND THE TRANSEPICONDYLAR AXIS. ANTERIOR POSTERIOR AND CHAMFER CUTS WERE MADE. THE CUTS WERE EXCELLENT. NEXT AN INTRAMEDULLARY CUTTING GUIDE WAS PLACED IN THE TIBIA. A TRANS TIBIAL CUT WAS MADE ALONG THE LONG AXIS OF THE TIBIA. APPROXIMATELY 10 MM OF BONE WAS REMOVED FROM THE HIGH SIDE OF THE TIBIA. THE TIBIA WAS THEN PLANED TO A SMOOTH SURFACE. POSTERIOR FEMORAL OSTEOPHYTES WERE REMOVED FROM THE FEMORAL CONDYLES. A 83 TIBIAL TRIAL WAS PLACED IN ALIGNMENT WITH THE 1/3 MEDIAL ASPECT OF THE TIBIAL TUBERCLE. THEN A 70 FEMORAL TRIAL COMPONENT WAS PLACED. BOTH HAD EXCELLENT FITS. EVENTUALLY A 10 MM CR POLYETHYLENE TRIAL COMPONENT WAS PLACED. THE KNEE WAS TAKEN THROUGH A RANGE OF MOTION. THE KNEE CAME OUT TO FULL EXTENSION. THERE WAS NO ABNORMAL TILT TO THE PATELLA. THERE WAS GOOD A/P AND VARUS/VALGUS STABILITY. THERE WAS NO EXCESSIVE ROLL BACK WITH FLEXION. THE TRIAL COMPONENTS WERE REMOVED. THEN A 70 FEMORAL COMPONENT AND 83 TIBIAL COMPONENT WITH A 10 CR POLYETHYLENE COMPONENT WERE CEMENTED INTO PLACE. ONCE THE CEMENT WAS HARD THE KNEE WAS TAKEN THROUGH A ROM AGAIN AND FOUND TO BE STABLE WITH NO PATELLA TILT NO EXCESSIVE ROLL BACK WITH FLEXION AND GOOD STABILITY WITH COMPLETE AND FULL EXTENSION. THE KNEE WAS IRRIGATED WITH STERILE BETADINE AND WATER FOR ABOUT 3 MINUTES. THE BLEEDERS WERE CAUTERIZED. THE ARTHROTOMY WAS REPAIRED WITH NUMBER 1 VICRYL. THE SUB CUTANEOUS LAYER WITH 2-0 VICRYL AND THE SKIN WITH CHERRI. THE WOUND WAS WASHED AND A STERILE DRESSING WAS APPLIED. PATIENT WAS EXTUBATED. Estimated Blood Loss -100.0 Pathology None sent Complications No immediate complications Condition Stable Disposition PACU
--- NOTE | 2022-07-27 16:39 | SUR.PHASEI ---
1600 pt is waiting for bed on floor, pt is ready to transfer to floor, stable at this time. meets pacu requirements for transferring to floor
--- NOTE | 2022-07-27 17:01 | ADMGEN ---
This patient, Pablito Orr, was admitted to Medical Room 252-01. Patient/family oriented to hospital policies and general routines including ID bracelet, bed and alarms, visiting hours, pain management, procedures, bathroom and other care routines, personal items, smoking policy, room service/diet, and visiting hours. Information on how to activate the Rapid Response Team has been discussed. Patient/Family are encouraged to report perceived risks to care and to ask questions if they do not understand what they are told or what they should do.
[2022-07-27] MEDS: CELECOXIB 200 MG CAPSULE PO (17:19)
[2022-07-27] MEDS: SENNA/DOCUSATE SODIUM TABLET 2 TAB PO (17:19)
[2022-07-27] MEDS: MELATONIN 5 MG TABLET 20 MG PO (21:20)
[2022-07-27] MEDS: ASPIRIN 81 MG CHEWABLE TABLET PO (21:20)
[2022-07-27] MEDS: ASPIRIN 325 MG ENTERIC TABLET PO (21:20)
[2022-07-27] MEDS: ROSUVASTATIN 10 MG TABLET 40 MG PO (21:20)
[2022-07-28 00:04] VITALS: BP 119/53; PULSE 100; RESP 16; TEMP 37.2; O2SAT 94
[2022-07-28] MEDS: ceFAZolin 2 GM/D5W 50 ML 2 GM/50 ML BAG IVPB ×2 (02:53→11:40)
[2022-07-28 04:14] VITALS: BP 137/72; PULSE 88; RESP 16; TEMP 36.9; O2SAT 94
[2022-07-28 06:50] LABS: Anion Gap 12 mmol/L (8-16); Blood Urea Nitrogen 21 mg/dL (9-20); Calcium 8.6 mg/dL (8.4-10.2); Carbon Dioxide 23 mmol/L (22-30); Chloride 101 mmol/L (98-107); Estimated CRCL calculation 58 ml/min; Estimated Glomerular Filt Rate 59; Glucose 135 mg/dL (65-110); Potassium 4.1 mmol/L (3.4-5.0); Sodium 136 mmol/L (137-145)
[2022-07-28 07:16] LABS: Basophils Percent Auto 0.2 % (0.2-1.2); Hematocrit 45.4 % (42.0-52.0); Immature Granulocyte Absolute 0.11 K/mm3 (0.00-0.031); Immature Granulocyte Percent A 0.6 % (0-0.5); Lymphocytes Percent Auto 10.8 % (18.3-44.2); Mean Corpuscular Hemoglobin 30.9 pg (26-34); Mean Corpuscular Volume 93.6 fl (80-100); Mean Platelet Volume 10.4 fl (7.4-10.4); Monocytes Absolute Auto 1.1 K/mm3 (0.1-0.6); Monocytes Percent Auto 5.4 % (2.6-8.5); Neutrophils Absolute Auto 16.1 K/mm3 (1.3-6.7); Platelet Count Result 223 k/mm3 (150-375); Red Blood Count 4.85 M/mm3 (4.6-6.20); Red Cell Distribution Width 12.4 % (11.5-14.5); White Blood Count 19.4 K/mm3 (4.5-10.0)
--- NOTE | 2022-07-28 07:59 | WPDANESPN ---
Anes - Prog Note Post-Op Date/Time: 07/28/22 07:59 Cardiovascular status: normal Respiratory status: normal Airway patency: baseline Mental status: baseline Post-Op hydration status: normal Vital Signs: Last Vital Signs Temp 36.9 C 07/28/22 04:14 Pulse 88 07/28/22 04:14 Resp 16 07/28/22 04:14 BP 137/72 07/28/22 04:14 Pulse Ox 94 07/28/22 04:14 O2 Del Method Room Air 07/27/22 23:26 O2 Flow Rate 2 07/27/22 16:10 Pain Score (VAS): 11/25 I/O: Intake & Output 07/27/22 07/27/22 07/28/22 15:59 23:59 07:59 Intake Total 1150 1130 100 Balance 1150 1130 100 Laboratory Tests 07/28/22 05:28 07/28/22 05:28 07/27/22 07/28/22 07/28/22 09:30 05:28 05:28 WBC 19.4 H RBC 4.85 Hgb 15.0 Hct 45.4 MCV 93.6 MCH 30.9 MCHC 33.0 RDW 12.4 Plt Count 223 MPV 10.4 Immature Gran % (Auto) 0.6 H Neut % (Auto) 83.0 H Lymph % (Auto) 10.8 L [place] % (Auto) 5.4 Eos % (Auto) 0.0 Baso % (Auto) 0.2 Lymph # (Auto) 2.10 [place] # (Auto) 1.1 H Eos # (Auto) 0.0 Baso # (Auto) 0.0 Abs Immat Gran (auto) 0.11 H Absolute Neuts (auto) 16.1 H Absolute Nucleated RBC 0.0 Nucleated RBC % 0.0 Sodium 136 L Potassium 4.1 Chloride 101 Carbon Dioxide 23 Anion Gap 12 BUN 21 H Creatinine 1.20 Estim Creat Clear Calc 58 Estimated GFR 59 Glucose 135 H Calcium 8.6 Blood Type O Positive Antibody Screen Negative Post-procedural complaints: none Patient Feedback: Patient satisfied with anesthetic care.
[2022-07-28] MEDS: CELECOXIB 200 MG CAPSULE PO (08:33)
[2022-07-28] MEDS: ASPIRIN 325 MG ENTERIC TABLET PO (08:34)
[2022-07-28] MEDS: CHOLECALCIFEROL 1,000 UNITS TABLET 5000 UNITS PO (08:34)
[2022-07-28] MEDS: SENNA/DOCUSATE SODIUM TABLET 2 TAB PO (08:35)
[2022-07-28] MEDS: polyethylene glycoL 3350 17 GM POWD.PACK PO (08:35)
[2022-07-28] MEDS: CYANOCOBALAMIN 1,000 MCG TABLET 5000 MCG PO (08:35)
[2022-07-28] MEDS: hydroCHLOROthiazide 25 MG TABLET PO (08:36)
--- NOTE | 2022-07-28 09:28 | PM.PNORT ---
Progress Note: A&P Assessment and Plan (1) S/P total knee arthroplasty: Code(s): Z96.659 - Presence of unspecified artificial knee joint Status: Acute Assessment and Plan: POD #1 : Left TKA Continue PT/OT. WBAT. Walker. HIGH FALL RISK. Continue pain control. Ice Knee. Protect skin. DVT prophylaxis with Aspirin. SCDs. Incentive Spirometry Use reviewed. Monitor Dressing. Change prior to discharge. Bowel Regimen. Dispo: Home with Home Health pending progress with PT/OT Subjective Subjective Date/Time Seen: 07/28/22 09:28 Post Op day: 1 Principal diagnosis: Left Knee DJD Interval history: POD #1: Left TKA Patient doing very well. Pain well controlled. Hopeful for discharge home today. Review of Systems Review of Systems: All systems reviewed & are unremarkable except as noted in HPI and below Constitutional: Constitutional: Denies fever(s) and Denies headache(s) ENT: Denies headache(s) Cardiovascular: Cardiovascular: Denies chest pain, Denies diaphoresis, Reports lightheadedness, Denies palpitations and Denies dyspnea Respiratory: Respiratory: Denies dyspnea Gastrointestinal: Gastrointestinal: Denies abdominal pain, Denies constipation, Denies nausea and Denies vomiting Genitourinary: Genitourinary: Denies dysuria and Reports nocturia Musculoskeletal: Musculoskeletal: Reports arthralgias (Left Knee ), Reports joint swelling (Left Knee ) and Reports limited range of motion (ROM limited due to recent surgical intervention LEFT Knee ) Neurologic: Denies headache(s) Endocrine: Endocrine: Denies palpitations Exam Const: General: comfortable and no acute distress Resp: Effort & Inspection: normal respiratory effort Cardio: Rate: regular rate Rhythm: regular rhythm GI: GI Palp: Yes Soft to palpation, No Tenderness to palpation present (GI) and No Guarding due to palpation present (GI) Skin: General skin exam: wounds noted (see extremity assessment ) Wounds: wounds noted (see extremity assessment ) Neuro: Cognition (Neuro): normal cognition Other: NV intact aside from block. Moves toes. Sensation intact to light touch. +ankle dorsiflexion/plantarflexion. Extrem: Left lower extremity: normal to inspection, normal capillary refill, knee Details: tenderness (diffuse ) Location: of the patella, swelling (moderate consistent to recent surgery ), abnormal ROM (limited due to recent surgery ) Details: pain with active ROM and pain with passive ROM and ecchymosis (as expected with recent surgery. NO hematoma. ), lower leg (Negative Ema's Sign ), ankle (+ankle dorsiflexion/plantarflexion ) Details: normal to inspection, no edema and normal ROM; no tenderness and no swelling and foot Details: normal capillary refill, toes with normal ROM, vascular exam Details: dorsalis pedis pulse present and motor-sensory exam light-touch normal; no tenderness Other: Incision left TKA dressing c/d/i. No hematoma. No signs of infection. No wound dehiscence. Psych: Mental Status: mental status grossly normal Objective Data Vital Signs Vital Signs: Vital Signs - 24 hr 07/27/22 09:38 07/27/22 14:40 07/27/22 14:55 Temperature 36.0 C L 36.4 C L Pulse Rate 65 93 87 Respiratory Rate 16 12 12 Blood Pressure 154/67 H 91/63 L 144/103 H Pulse Oximetry 99 96 93 Oxygen Delivery Room Air Simple Face Mask Room Air Oxygen Flow Rate 8 07/27/22 15:10 07/27/22 15:25 07/27/22 15:40 Temperature Pulse Rate 94 95 94 Respiratory Rate 12 12 12 Blood Pressure 155/75 H 149/79 H 148/75 H Pulse Oximetry 95 96 97 Oxygen Delivery Nasal Cannula Nasal Cannula Nasal Cannula Oxygen Flow Rate 2 2 2 07/27/22 15:55 07/27/22 16:10 07/27/22 16:30 Temperature Pulse Rate 98 92 97 Respiratory Rate 12 12 12 Blood Pressure 122/77 146/84 H 140/85 Pulse Oximetry 98 99 94 Oxygen Delivery Nasal Cannula Nasal Cannula Room Air Oxygen Flow Rate 2 2 07/27/22 17:10 07/27/22 17:25 07/27/22 17:55 Temperature 36.3
[2022-07-28 09:39] VITALS: BP 156/64; PULSE 94; RESP 18; TEMP 36.9; O2SAT 96
--- NOTE | 2022-07-28 13:21 | PM.DS ---
DS: Admitting Diagnosis Discharge Date 07/28/22 Admitting Diagnosis Left TKA DS: Discharge Diagnosis Discharge Diagnosis (1) S/P total knee arthroplasty: Code(s): Z96.659 - Presence of unspecified artificial knee joint Status: Acute Assessment and Plan: POD #1 : Left TKA Continue PT/OT. WBAT. Walker. HIGH FALL RISK. Continue pain control. Ice Knee. Protect skin. DVT prophylaxis with Aspirin. SCDs. Incentive Spirometry Use reviewed. Monitor Dressing. Change prior to discharge. Bowel Regimen. Dispo: Home with Home Health pending progress with PT/OT DS: Summary Hospital Course Reason for hospitalization: Left TKA Hospital Course: 72 year old male admitted s/p Left TKA for postoperative medical management, paint control and mobilization with PT/OT. Patient progressed well with PT/OT. Pain and vitals stable throughout. He has been cleared to be discharged home with home health at this time. Follow up planned for 3 weeks in the outpatient orthopedic clinic with Dr. Johnson. Status at Discharge Functional status at discharge: uses cane/walker Overall status at discharge: patient is progressing back to baseline Time Spent with Patient Time attestation: Total time spent providing and/or coordinating discharge services: Exam Const: General: comfortable and no acute distress Resp: Effort & Inspection: normal respiratory effort Cardio: Rate: regular rate Rhythm: regular rhythm Skin: General skin exam: wounds noted (see extremity assessment ) Wounds: wounds noted (see extremity assessment ) Neuro: Cognition (Neuro): normal cognition Other: NV intact aside from block. Moves toes. Sensation intact to light touch. +ankle dorsiflexion/plantarflexion. Extrem: Left lower extremity: normal to inspection, normal capillary refill, knee Details: tenderness (diffuse ) Location: of the patella, swelling (moderate consistent to recent surgery ), abnormal ROM (limited due to recent surgery ) Details: pain with active ROM and pain with passive ROM and ecchymosis (as expected with recent surgery. NO hematoma. ), lower leg (Negative Ema's Sign ), ankle (+ankle dorsiflexion/plantarflexion ) Details: normal to inspection, no edema and normal ROM; no tenderness and no swelling and foot Details: normal capillary refill, toes with normal ROM, vascular exam Details: dorsalis pedis pulse present and motor-sensory exam light-touch normal; no tenderness Other: Incision left TKA dressing c/d/i. No hematoma. No signs of infection. No wound dehiscence. Psych: Mental Status: mental status grossly normal DS: Data Data Completed and Pending Labs on day of discharge: Labs from last 24 hours 07/28/22 07/28/22 05:28 05:28 WBC 19.4 H RBC 4.85 Hgb 15.0 Hct 45.4 MCV 93.6 MCH 30.9 MCHC 33.0 RDW 12.4 Plt Count 223 MPV 10.4 Immature Gran % (Auto) 0.6 H Neut % (Auto) 83.0 H Lymph % (Auto) 10.8 L [place] % (Auto) 5.4 Eos % (Auto) 0.0 Baso % (Auto) 0.2 Lymph # (Auto) 2.10 [place] # (Auto) 1.1 H Eos # (Auto) 0.0 Baso # (Auto) 0.0 Abs Immat Gran (auto) 0.11 H Absolute Neuts (auto) 16.1 H Absolute Nucleated RBC 0.0 Nucleated RBC % 0.0 Sodium 136 L Potassium 4.1 Chloride 101 Carbon Dioxide 23 Anion Gap 12 BUN 21 H Creatinine 1.20 Estim Creat Clear Calc 58 Estimated GFR 59 Glucose 135 H Calcium 8.6 Discharge Plan Discharge Patient Disposition: Home Health Service Discharge Instructions: Post Op Total Knee Replacement Instructions Dr. Sridhar Johnson [phone] Your dressing will be changed prior to your discharge. You will be sent home with one additional dressing to be changed on post op day 7 by the home health RN. Your gerard will be removed on the 14th day after surgery and steri-strips will be placed. Please practice good hand hygiene and do not touch your incision in order to prevent infection. You may shower with your dressing bu
--- NOTE | 2022-07-28 14:23 | PC.NURSE ---
On 07/28/22, the student, [Lizbeth Mittal], provided care and completed [facility] documentation on this patient. I have reviewed the student's documentation and agree with the findings.
== END 2022-07-28 13:58 | disposition home health service (06) ==
LOC: ANHSURGERY 08:50 → ANH2MED 16:59
PROVIDERS: PCP Family Medicine; Visit Provider Orthopaedic Surgery
PROC: (CPT 27447; principal; 2022-07-27 11:00)
DX: M17.12 Unilateral primary osteoarthritis, left knee (principal); G89.18 Other acute postprocedural pain; I25.10 Atherosclerotic heart disease of native coronary artery without angina pectoris; E78.00 Pure hypercholesterolemia, unspecified; I10 Essential (primary) hypertension; F41.9 Anxiety disorder, unspecified; Z95.5 Presence of coronary angioplasty implant and graft; Z79.82 Long term (current) use of aspirin
CPT/HCPCS: 27447; 64447; 36415; 73560; 80048; 80307; 81001; 82040; 83036; 85025; 85610; 85730; 86850; 86900; 86901; 87081; 93005; 97110; 97161; 97165; 97530; 97535; A9270; C1713; C1776; J0171; J0690; J1100; J1170; J1885; J2250; J2270; J2405; J2704; J2795; J3010; J7120